=== PATIENT | male | born 1980 | race Caucasian/White ===

== ENCOUNTER 2017-04-02 08:33 | Emergency (ER) | payer SELFPAY ==
[2017-04-02 08:50] VITALS: BP 128/83; TEMP 97.1; O2SAT 100
[2017-04-02] MEDS ORDERED: CLINDAMYCIN HCL CAP 150 MG CAP ONE (08:54)
[2017-04-02] MEDS ORDERED: ACETAMINOPHEN W/COD #3 TAB 1 EA TAB ONE (08:55)
--- NOTE | 2017-04-02 09:05 | ED.PDOC ---
History of Present Illness - General Chief Complaint: Dental/Mouth Stated Complaint: Swollen L cheek x 12 hr Time Seen by Provider: 04/02/17 09:03 Source: patient, RN notes reviewed, Vital Signs reviewed Exam Limitations: no limitations - History of Present Illness Initial Comments: Patient started with L upper molar pain yesterday that worsened throughout the day. He took 2 Amoxicillin last night. This morning he woke up with a very swollen L cheek. No fever or chills. Timing/Duration: 24 hours Severity: moderate Improving Factors: nothing Worsening Factors: eating Associated Symptoms: denies symptoms Allergies/Adverse Reactions: Allergies NO KNOWN ALLERGY Allergy (Verified 04/02/17 08:51) Home Medications: Ambulatory Orders Acetaminophen W/ Codeine [Tylenol W/ CODEINE #3] 2 ea PO BID #28 04/02/17 Clindamycin HCl 300 mg PO Q6HR #15 cap 04/02/17 Review of Systems - Review of Systems Constitutional: States: no symptoms reported. Denies: chills, diaphoresis, fever, malaise EENTM: States: see HPI, mouth pain, mouth swelling. Denies: throat swelling Respiratory: States: no symptoms reported Cardiology: States: no symptoms reported Skin: States: see HPI Neurological: States: no symptoms reported All other Systems: No Change from Baseline Past Medical History (General) - Patient Medical History Hx Stroke: No Hx Congestive Heart Failure: No Hx Hypertension: No Hx Diabetes: No Hx Cancer: No Hx Hepatitis C: No Surgical History: no surgical history - Vaccination History Hx Tetanus, Diphtheria Vaccination: No Hx Influenza Vaccination: No Hx Pneumococcal Vaccination: No - Social History Hx Tobacco Use: Yes Hx Chewing Tobacco Use: No Hx Alcohol Use: Yes - Occas Hx Substance Use: No Hx Substance Use Treatment: No Hx Depression: No Feels Threatened In Home Enviroment: No Feels Threatened In a Relationship: No Hx Physical Abuse: No Hx Emotional Abuse: No Hx Suspected Abuse: No Family Medical History - Family History Grandparents Family History: Unknown Physical Exam - Physical Exam General Appearance: Alert, Comfortable, No apparent distress, Well Developed, Well Groomed, Well Hydrated, Well Nourished Eye Exam: bilateral normal Ears, Nose, Throat: hearing grossly normal, other - L upper last molar: severe dental caries with surrounding gum tenderness but no fluctuance or abscess Neck: non-tender, full range of motion, supple, lymphadenopathy (L) Respiratory: no respiratory distress Neurologic: alert, normal mood/affect, oriented x 3 Skin Exam: other - L cheek is erythematous and tender, minimal warmth. Progress - EKG/XRAY/CT CT Ordered: No CT Interpretation Call Back: No Departure - Departure Clinical Impression: Dental caries, Gingivitis, Acute periodontitis Time of Disposition: 09:09 Disposition: Discharge to Home or Self Care Condition: Good Departure Forms: ED Discharge - Pt. Copy, Patient Portal Self Enrollment Instructions: Tooth Decay, Tooth Abscess Diet: resume usual diet Activity: increase activity as tolerated Referrals: Franky Melgar MD [Primary Care Provider] - 1-2 Weeks Prescriptions: Clindamycin HCl 300 mg PO Q6HR #15 cap Acetaminophen W/ Codeine [Tylenol W/ CODEINE #3] 2 ea PO BID #28 Home Medications: Ambulatory Orders Acetaminophen W/ Codeine [Tylenol W/ CODEINE #3] 2 ea PO BID #28 04/02/17 Clindamycin HCl 300 mg PO Q6HR #15 cap 04/02/17 Additional Instructions: Swish with warm salt water at least 5X/day
[2017-04-02] MEDS ORDERED: ACETAMINOPHEN W/COD #3 TAB 1 EA TAB PO ONE (09:16)
[2017-04-02] MEDS ORDERED: CLINDAMYCIN HCL CAP 150 MG CAP PO ONE (09:16)
== END 2017-04-02 09:20 | disposition home or self-care (01) ==
LOC: ER 08:33
DX: K02.9 Dental caries, unspecified (principal); K05.10 Chronic gingivitis, plaque induced; K05.20 Aggressive periodontitis, unspecified; Z87.891 Personal history of nicotine dependence

== ENCOUNTER 2018-09-01 09:30 | Emergency (ER) | payer SELFPAY ==
--- NOTE | 2018-09-01 09:46 | ED.PDOC ---
History of Present Illness - General Chief Complaint: GI Problem Stated Complaint: Bloody stool, abd pain, fever Time Seen by Provider: 09/01/18 09:46 Source: patient Exam Limitations: no limitations - History of Present Illness Initial Comments: Simeon Bragg 38 y/o male came to ER with watery diarrhea for the last 2 days and blood tinged stool getting chills and with low grade fever today.No foreign travel,no recent antibiotic use;no ill contact.Stated had history of blood tinged stool 2 years ago for 3 weeks but went away w/o md attention.Denies chronic medical problem,no weight loss or afternoon fever.Also had crampy abdominal pain during diarrheic episodes. Timing/Duration: intermittent, other - 2 days Severity: moderate Improving Factors: nothing Worsening Factors: eating Associated Symptoms: loss of appetite Allergies/Adverse Reactions: Allergies NO KNOWN ALLERGY Allergy (Verified 04/02/17 08:51) Home Medications: Ambulatory Orders Acetaminophen W/ Codeine [Tylenol W/ CODEINE #3] 2 ea PO BID #28 04/02/17 Clindamycin HCl 300 mg PO Q6HR #15 cap 04/02/17 Sulfa/Trimeth 800/160 (Ds) Tab [Bactrim DS] 1 tablet PO BID 10 Days #20 tab 04/14 Past Medical History (General) - Patient Medical History Hx Stroke: No Hx Congestive Heart Failure: No Hx Hypertension: No Hx Diabetes: No Hx Cancer: No Hx Hepatitis C: No Surgical History: no surgical history - Vaccination History Hx Tetanus, Diphtheria Vaccination: No Hx Influenza Vaccination: No Hx Pneumococcal Vaccination: No - Social History Hx Tobacco Use: Yes Hx Chewing Tobacco Use: No Hx Alcohol Use: Yes - Occas Hx Substance Use: No Hx Substance Use Treatment: No Hx Depression: No Hx Physical Abuse: No Hx Emotional Abuse: No Hx Suspected Abuse: No - Activities of Daily Living Patient Lives Alone: No Family Medical History - Family History Grandparents Family History: Unknown Hx Family Hypertension: Yes - multiple family members Hx Family Cancer: Yes - throat-mom Physical Exam - Physical Exam General Appearance: Alert, Comfortable, No apparent distress Eye Exam: bilateral normal Ears, Nose, Throat: hearing grossly normal, normal ENT inspection, normal pharynx Neck: non-tender, full range of motion, supple, normal inspection Respiratory: chest non-tender, lungs clear, normal breath sounds, no respiratory distress Cardiovascular/Chest: normal peripheral pulses, regular rate, rhythm, no gallop , no murmur Peripheral Pulses: radial,right: 2+, radial,left: 2+ Gastrointestinal/Abdominal: normal bowel sounds, non tender, soft, no organomegaly, no pulsatile mass Rectal Exam: normal exam, normal rectal tone, heme positive stool Back Exam: no CVA tenderness, no vertebral tenderness Extremity: normal range of motion, non-tender, no pedal edema, no calf tenderness Neurologic: no motor/sensory deficits, alert, oriented x 3 Skin Exam: normal color, warm/dry Lymphatic: no adenopathy Progress - Progress Progress: 09/01/18 10:06 Vital Signs - 8 hr 09/01/18 09:42 Temperature 100.8 F H Pulse Rate [ 89 left brachial] Respiratory 20 Rate Blood Pressure 117/78 [left brachial] O2 Sat by Pulse 99 Oximetry - Results/Orders Results/Orders: 09/01/18 10:10 URINE CULTURE W/COLONY COUNT Stat Laboratory Results - last 24 hr 09/01/18 09/01/18 09/01/18 10:10 10:10 10:15 WBC 5.2 RBC 5.01 Hgb 15.3 Hct 44.6 MCV 89.0 MCH 30.5 MCHC 34.3 RDW 12.2 Plt Count 227 MPV 7.5 Absolute Neuts (auto) 3.80 Absolute Lymphs (auto) 1.00 Absolute Monos (auto) 0.40 Absolute Eos (auto) 0.00 Absolute Basos (auto) 0.00 Neutrophils % 72.8 Lymphocytes % 19.6 L Monocytes % 7.0 Eosinophils % 0.0 L Basophils % 0.6 Sodium Potassium Chloride Carbon Dioxide Anion Gap BUN Creatinine BUN/Creatinine Ratio Random Glucose Serum Osmolality Lactic Acid Calcium Total Bilirubin AST ALT Alkaline Phosphatase Serum Total Protein Albumin Globulin Albumin/Globulin Ratio Urine Color Yellow Urine Appearance Cloudy Urine pH 6.0 Ur Specific [place] >= 1.030 Urine Protein 30 Urine Glucose (UA) Negative Urine Ketones Negative Urine Blood Negative Urine Nitrite Negative Urine Bilirubin Negative Urine Urobilinogen 0.2 Ur Leukocyte Esterase Trace H Urine RBC 1-3 Urine WBC 10-20 H Ur Epithelial Cells 1-3 Urine Bacteria 1+ Urine Mucus Small Urine Sperm 0-1 Stool Occult Blood Positive 09/01/18 09/01/18 10:15 10:15 WBC RBC Hgb Hct MCV MCH MCHC RDW Plt Count MPV Absolute Neuts (auto) Absolute Lymphs (auto) Absolute Monos (auto) Absolute Eos (auto) Absolute Basos (auto) Neutrophils % Lymphocytes % Monocytes % Eosinophils % Basophils % Sodium 133 L Potassium 3.1 L Chloride 101 Carbon Dioxide 24 Anion Gap 11.1 L BUN 8 Creatinine 0.90 BUN/Creatinine Ratio 8.9 L Random Glucose 131 H Serum Osmolality 266.5 L Lactic Acid 1.5 Calcium 8.4 Total Bilirubin 0.5 AST 23 ALT 19 Alkaline Phosphatase 71 Serum Total Protein 6.8 Albumin 3.9 Globulin 2.9 Albumin/Globulin Ratio 1.3 Urine Color Urine Appearance Urine pH Ur Specific [place] Urine Protein Urine Glucose (UA) Urine Ketones Urine Blood Urine Nitrite Urine Bilirubin Urine Urobilinogen Ur Leukocyte Esterase Urine RBC Urine WBC Ur Epithelial Cells Urine Bacteria Urine Mucus Urine Sperm Stool Occult Blood - EKG/XRAY/CT XRAY: chest - no acute abnormality Departure - Departure Clinical Impression: Positive fecal occult blood test, Abdominal cramps Diarrhea Qualifiers: Diarrhea type: unspecified type Qualified Code(s): R19.7 - Diarrhea, unspecified Urinary tract infection Qualifiers: Urinary tract infection type: site unspecified Hematuria presence: without hematuria Qualified Code(s): N39.0 - Urinary tract infection, site not specified Time of Disposition: 11:43 Disposition: Discharge to Home or Self Care Condition: Fair Departure Forms: ED Discharge - Pt. Copy, Patient Portal Self Enrollment Instructions: [place] Diet Diet: other - AVOID GREASY SPICY FOODS UNTIL BETTER;BLAND DIET-banana,steamed rice,crackers,jello,toast bread for the next 24 hours and to advance as tolerated Referrals: Franky Melgar MD [Primary Care Provider] - 1-2 Weeks Prescriptions: Sulfa/Trimeth 800/160 (Ds) Tab [Bactrim DS] 1 tablet PO BID 10 Days #20 tab Home Medications: Ambulatory Orders Acetaminophen W/ Codeine [Tylenol W/ CODEINE #3] 2 ea PO BID #28 04/02/17 Clindamycin HCl 300 mg PO Q6HR #15 cap 04/02/17 Sulfa/Trimeth 800/160 (Ds) Tab [Bactrim DS] 1 tablet PO BID 10 Days #20 tab 04/14 Additional Instructions: NEED TO SIGN UP WITH PRIMARY MD [id number] FOR REFERRAL TO [facility];Return to ER as NEEDED
[2018-09-01 09:47] VITALS: TEMP 100.8
[2018-09-01] MEDS ORDERED: LACTATED RINGERS 1,000 ML IVS ONE (09:47)
--- NOTE | 2018-09-01 10:05 | RAD ---
EXAM DESCRIPTION: Chest,1 View CLINICAL HISTORY: fever COMPARISON: None available FINDINGS: Single upright portable frontal view the chest. Cardiomediastinal silhouette and pulmonary vascularity are within normal limits. Lungs are clear without focal consolidations. Bilateral costophrenic angles are sharp. No pneumothorax. Visualized osseous structures show no destructive lesions. IMPRESSION: No radiographic evidence for acute cardiopulmonary process. Electronically signed by: Jean Marie Lowe MD 09/01/2018 10:03 AM CDT
[2018-09-01] MEDS ORDERED: cefTRIAXone SODIUM 1 GM in SODIUM CHL 0.9% 50ML MIN-BAG+ 50 ML IVPB ONE (11:44)
[2018-09-01] MEDS ORDERED: cefTRIAXone SODIUM 1 GM VIAL ONE (11:51)
[2018-09-01] MEDS ORDERED: SODIUM CHL 0.9% 50ML MIN-BAG+ 50 ML IVPB ONE (11:52)
[2018-09-01 12:30] VITALS: BP 120/75; O2SAT 98
== END 2018-09-01 12:30 | disposition home or self-care (01) ==
LOC: ER 09:30
DX: K92.1 Melena (principal); N39.0 Urinary tract infection, site not specified; R19.7 Diarrhea, unspecified; Z87.891 Personal history of nicotine dependence
CPT/HCPCS: 36415; 71045; 80053; 81001; 82270; 83605; 85025; 87086; 87324; 87449; J0696; J7050; J7120

== ENCOUNTER 2020-07-05 09:13 | Emergency (ER) | payer SELFPAY ==
[2020-07-05 09:29] VITALS: BP 140/88; TEMP 97.7; O2SAT 99
[2020-07-05] MEDS ORDERED: SULFA/TRIMETH 800/160 (DS) TAB 1 EA TAB PO ONE (09:30)
--- NOTE | 2020-07-05 09:33 | ED.PDOC ---
History of Present Illness - General Chief Complaint: Skin/Abrasion/Tear Time Seen by Provider: 07/05/20 09:30 Source: patient Exam Limitations: no limitations - History of Present Illness Initial Comments: The patient is a 40-year-old male presented emergency room secondary to abscess formation under his chin. It has been growing for the past 5 to 7 days. He actually did get it to drain last night. There is significant swelling in the area. Difficult to tell if there is actually any pus remaining at this point or this is simply inflammation from the infection. No evidence of any impingement into the oral cavity or airway. The area is just under the point of the chin. After risk and benefits were explained the patient did agree for a trial incision. Wound is cleaned with alcohol and a #11 blade is used to make a three-quarter centimeter incision over the peak. Less than 1 cc of pus was obtained. This was cultured. Pressure was used for hemostasis. Estimated blood loss is less than 1 cc. Timing/Duration: 1 week Severity: mild Improving Factors: nothing Worsening Factors: nothing Associated Symptoms: denies symptoms Allergies/Adverse Reactions: Allergies NO KNOWN ALLERGY Allergy (Verified 07/05/20 09:23) Home Medications: Ambulatory Orders Sulfa/Trimeth 800/160 (Ds) Tab [Bactrim DS Tab] 1 ea PO BID #14 tab 07/05/20 Review of Systems - Review of Systems Constitutional: States: no symptoms reported EENTM: States: no symptoms reported Respiratory: States: no symptoms reported Cardiology: States: no symptoms reported Gastrointestinal/Abdominal: States: no symptoms reported Genitourinary: States: no symptoms reported Musculoskeletal: States: no symptoms reported Skin: States: see HPI Neurological: States: no symptoms reported Endocrine: States: no symptoms reported Hematologic/Lymphatic: States: no symptoms reported All other Systems: No Change from Baseline Past Medical History (General) - Patient Medical History Hx Seizures: No Hx Stroke: No Hx Dementia: No Hx Asthma: No Hx of COPD: No Hx Cardiac Disorders: No Hx Congestive Heart Failure: No Hx Pacemaker: No Hx Hypertension: No Hx Thyroid Disease: No Hx Diabetes: No Hx Gastroesophageal Reflux: No Hx Renal Disease: No Hx Cancer: No Hx of HIV: No Hx Hepatitis C: No Hx MRSA: No Surgical History: no surgical history - Vaccination History Hx Tetanus, Diphtheria Vaccination: No Hx Influenza Vaccination: No Hx Pneumococcal Vaccination: No - Social History Hx Tobacco Use: Yes Hx Chewing Tobacco Use: Yes Hx Alcohol Use: Yes - Occas Hx Substance Use: No Hx Substance Use Treatment: No Hx Depression: No Hx Physical Abuse: No Hx Emotional Abuse: No Hx Suspected Abuse: No Family Medical History - Family History Grandparents Family History: Unknown Hx Family Hypertension: Yes - multiple family members Hx Family Cancer: Yes - throat-mom Physical Exam - Physical Exam General Appearance: Alert, Comfortable, No apparent distress Eye Exam: bilateral normal Ears, Nose, Throat: hearing grossly normal, normal pharynx Neck: other - Swelling just under the point of the chin. There is an abrasion over the area of swelling. No current drainage. 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 The patient had already done a pretty good job of draining the abscess prior to arrival. Incision here produced minimal results. A culture was done. The patient was dosed with Bactrim and will be written for 1 week of Bactrim. He needs to take this with food to prevent stomach upset. He also needs to avoid shaving for the next week. ER warnings are given for any significant worsening. [email or web address] [id number] Departure - Departure Clinical Impression: Abscess of skin Qualifiers: Site of cutaneous abscess: neck Qualified Code(s): L02.11 - Cutaneous abscess of neck Disposition: Discharge to Home or Self Care Condition: Fair Departure Forms: ED Discharge - Pt. Copy, Patient Portal Self Enrollment Instructions: DI for Abrasion, Boil (DC) Diet: regular diet Activity: increase activity as tolerated Prescriptions: Sulfa/Trimeth 800/160 (Ds) Tab [Bactrim DS Tab] 1 ea PO BID #14 tab Home Medications: Ambulatory Orders Sulfa/Trimeth 800/160 (Ds) Tab [Bactrim DS Tab] 1 ea PO BID #14 tab 07/05/20 Additional Instructions: The patient is a 40-year-old male presented emergency room secondary to abscess formation under the point of the chin. The patient had already done a pretty good job of draining the abscess prior to arrival. Incision here produced minimal results. A culture was done. The patient was dosed with Bactrim and will be written for 1 week of Bactrim. He needs to take this with food to prevent stomach upset. He also needs to avoid shaving for the next week. ER warnings are given for any significant worsening.
== END 2020-07-05 09:40 | disposition home or self-care (01) ==
LOC: ER 09:13
DX: L02.11 Cutaneous abscess of neck (principal); Z87.891 Personal history of nicotine dependence

== ENCOUNTER 2020-11-09 15:33 | Emergency (ER) | payer SELFPAY ==
[2020-11-09 15:54] VITALS: BP 122/75; TEMP 98.3; O2SAT 98
[2020-11-09] MEDS ORDERED: SULFA/TRIMETH 800/160 (DS) TAB 1 EA TAB PO ONE (15:56)
--- NOTE | 2020-11-09 15:59 | ED.PDOC ---
History of Present Illness - General Chief Complaint: Skin/Abrasion/Tear Stated Complaint: Reddened/inflamed area, poss bite in groin area Time Seen by Provider: 11/09/20 15:39 Source: patient Exam Limitations: no limitations - History of Present Illness Timing/Duration: constant, other - 2 days Severity: mild Improving Factors: nothing Worsening Factors: nothing Associated Symptoms: other - abcess Allergies/Adverse Reactions: Allergies NO KNOWN ALLERGY Allergy (Verified 07/05/20 09:23) Home Medications: Ambulatory Orders Sulfa/Trimeth 800/160 (Ds) Tab [Bactrim DS Tab] 1 ea PO BID 11/09/20 Sulfa/Trimeth 800/160 (Ds) Tab [Bactrim DS] 1 tablet PO BID 11/09/20 Review of Systems - Review of Systems Constitutional: Denies: chills, fever EENTM: Denies: tearing, nose pain, nose congestion Respiratory: Denies: cough, short of breath Cardiology: Denies: chest pain, edema Gastrointestinal/Abdominal: Denies: abdominal pain, constipation Genitourinary: Denies: discharge Musculoskeletal: Denies: back pain, gout Skin: States: other - asbcess / cellultis inleft inguinal region Neurological: Denies: anxiety, depressed, emotional problems Endocrine: Denies: intolerance to cold, intolerance to heat Hematologic/Lymphatic: Denies: anemia, easy bruising Past Medical History (General) - Patient Medical History Hx Seizures: No Hx Stroke: No Hx Dementia: No Hx Asthma: No Hx of COPD: No Hx Cardiac Disorders: No Hx Congestive Heart Failure: No Hx Pacemaker: No Hx Hypertension: No Hx Thyroid Disease: No Hx Diabetes: No Hx Gastroesophageal Reflux: No Hx Renal Disease: No Hx Cancer: No Hx of HIV: No Hx Hepatitis C: No Hx MRSA: No Surgical History: no surgical history - Vaccination History Hx Tetanus, Diphtheria Vaccination: No Hx Influenza Vaccination: No Hx Pneumococcal Vaccination: No - Social History Hx Tobacco Use: Yes Hx Chewing Tobacco Use: Yes Hx Alcohol Use: Yes Hx Substance Use: No Hx Substance Use Treatment: No Hx Depression: No Hx Physical Abuse: No Hx Emotional Abuse: No Hx Suspected Abuse: No Family Medical History - Family History Grandparents Family History: Unknown Hx Family Hypertension: Yes - multiple family members Hx Family Cancer: Yes - throat-mom Physical Exam - Physical Exam General Appearance: Alert, Anxious, Comfortable Eyes, Ears, Nose, Throat Exam: TMs normal, pharynx normal Neck: non-tender, full range of motion, supple Cardiovascular/Chest: normal peripheral pulses, regular rate, rhythm, no edema, no gallop, no JVD, no murmur, JVD Respiratory: chest non-tender, lungs clear, normal breath sounds, no respiratory distress, no accessory muscle use Gastrointestinal/Abdominal: normal bowel sounds, non tender, soft, no organomegaly, no pulsatile mass Back Exam: normal inspection, no CVA tenderness Extremity: normal range of motion, non-tender, normal inspection, no pedal edema 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 not drainable at this time Progress - Progress Progress: 11/09/20 15:59 The patient is a 40-year-old male that presents to the emergency department with complaints of an inguinal abscess. Onset was 2 days ago. Abscess is not drainable at time of my evaluation today. No fevers no chills vitals are stable started patient on Bactrim patient advised follow-up primary care physician in 1 to 2 days. Patient advised to return to the ED as needed if the abscess that is draining for an I&D or follow-up with his primary care physician. He verbalized understanding Departure - Departure Clinical Impression: Abscess of groin, left Clinical Impression: (Ruled Out): Abscess and cellulitis of gluteal region Disposition: Discharge to Home or Self Care Departure Forms: ED Discharge - Pt. Copy, Patient Portal Self Enrollment Diet: full liquid diet Activity: ambulate only with walker Referrals: Wallace Vidales DO [Non-Staff] - 1-2 Weeks Home Medications: Ambulatory Orders Sulfa/Trimeth 800/160 (Ds) Tab [Bactrim DS Tab] 1 ea PO BID 11/09/20 Sulfa/Trimeth 800/160 (Ds) Tab [Bactrim DS] 1 tablet PO BID 11/09/20
== END 2020-11-09 16:11 | disposition home or self-care (01) ==
LOC: ER 15:33
DX: L02.214 Cutaneous abscess of groin (principal); Z87.891 Personal history of nicotine dependence

== ENCOUNTER 2020-11-10 19:44 | Emergency (ER) | payer SELFPAY ==
[2020-11-10] MEDS ORDERED: LIDOCAINE 1% 10 ML VIAL INJ ONE (19:54)
[2020-11-10] MEDS ORDERED: VANCOMYCIN HCL INJ 1,000 MG in SODIUM CHLORIDE 0.9% 250ML 250 ML IVPB ONE (19:58)
--- NOTE | 2020-11-10 20:00 | ED.PDOC ---
History of Present Illness - General Chief Complaint: Skin/Abrasion/Tear Time Seen by Provider: 11/10/20 19:45 Source: RN notes reviewed, Vital Signs reviewed, EMS notes reviewed Additional Information: Patient presented to the ER because of a abscess in the left groin area, this patient was seen here yesterday and was discharged home with Bactrim, he stated that symptoms began about 3 days ago and he states that is getting worse, patient does not appear toxic does not be in any distress no fever no chills no coughing, no hx of Diabetes Patient patient denies fever chills coughing denies cigarettes alcohol or drugs - History of Present Illness Timing/Duration: other - 3 days Severity: severe Improving Factors: nothing Worsening Factors: nothing Associated Symptoms: denies symptoms Allergies/Adverse Reactions: Allergies NO KNOWN ALLERGY Allergy (Verified 07/05/20 09:23) Home Medications: Ambulatory Orders Sulfa/Trimeth 800/160 (Ds) Tab [Bactrim DS Tab] 1 ea PO BID 11/09/20 Sulfa/Trimeth 800/160 (Ds) Tab [Bactrim DS] 1 tablet PO BID 11/09/20 Acetaminophen W/ Codeine [Tylenol W/ CODEINE #3] 1 ea PO Q6HRS #20 ea 11/10/20 Cephalexin Monohydrate [Keflex] 500 mg PO BID #14 cap 11/10/20 Review of Systems - Review of Systems Constitutional: States: no symptoms reported EENTM: States: no symptoms reported Respiratory: States: no symptoms reported Cardiology: States: no symptoms reported Gastrointestinal/Abdominal: States: no symptoms reported Genitourinary: States: no symptoms reported Musculoskeletal: States: no symptoms reported Skin: States: no symptoms reported Neurological: States: no symptoms reported Endocrine: States: no symptoms reported Hematologic/Lymphatic: States: no symptoms reported Past Medical History (General) - Patient Medical History Hx Seizures: No Hx Stroke: No Hx Dementia: No Hx Asthma: No Hx of COPD: No Hx Cardiac Disorders: No Hx Congestive Heart Failure: No Hx Pacemaker: No Hx Hypertension: No Hx Thyroid Disease: No Hx Diabetes: No Hx Gastroesophageal Reflux: No Hx Renal Disease: No Hx Cancer: No Hx of HIV: No Hx Hepatitis C: No Hx MRSA: No - Vaccination History Hx Tetanus, Diphtheria Vaccination: No Hx Influenza Vaccination: No Hx Pneumococcal Vaccination: No - Social History Hx Tobacco Use: Yes Hx Chewing Tobacco Use: Yes Hx Alcohol Use: Yes Hx Substance Use: No Hx Substance Use Treatment: No Hx Depression: No Hx Physical Abuse: No Hx Emotional Abuse: No Hx Suspected Abuse: No Family Medical History - Family History Grandparents Family History: Unknown Hx Family Hypertension: Yes - multiple family members Hx Family Cancer: Yes - throat-mom Physical Exam - Physical Exam General Appearance: Well Developed, Well Groomed, Well Hydrated, Well Nourished Ears, Nose, Throat: hearing grossly normal, normal ENT inspection, normal pharynx Neck: non-tender, full range of motion, supple, normal inspection Respiratory: chest non-tender, lungs clear, normal breath sounds, no respiratory distress, no accessory muscle use Cardiovascular/Chest: normal peripheral pulses, regular rate, rhythm, no edema, no gallop, no JVD, no murmur Peripheral Pulses: radial,right: 2+, radial,left: 2+ Gastrointestinal/Abdominal: normal bowel sounds, non tender, soft, no organomegaly, no pulsatile mass Back Exam: normal inspection, no CVA tenderness, no vertebral tenderness Extremity: normal range of motion, non-tender, normal inspection, no pedal edema, no calf tenderness Neurologic: steward/stewardess night II-XII nml as tested, no motor/sensory deficits, alert, normal mood/affect, oriented x 3 Skin Exam: normal color Comments: Cellulitis right the left groin area, with some fluctuance, it does not appear to be extending into the testicle of the penis, Progress - Progress Progress: I personally spoke with the radiologist.or further before since there was some evidence of some subcutaneous gas that could be due to necrotizing gangrene, or gaseous gangrene. But this gas was troubled by the fact that I incise the area of inflammation, with some minimal pus, CT did not show any evidence of abscess there was no evidence of extending into the pelvics or testicles or deep groin area patient was alredy taking Bactrim, I did give him a dose of IV vancomycin, and will add Keflex to his antibiotics regimen and will give him also Tylenol 3 for pain Return to the ER immediately if there is any fever chills worsening condition pain if the area of redness is extending into the penis testicles deep into the groin area medial aspect of the thigh muscle or any other concern 12/14/20 21:11 Procedures - Incision and Drainage #1 Procedure and Prep: sterile dressings applied, pus drained Blade Size: 11 Procedure Comments: left groin Was in sinus with some minimal pus and blood but no complication Departure - Departure Clinical Impression: Abdominal wall cellulitis Disposition: Discharge to Home or Self Care Departure Forms: ED Discharge - Pt. Copy, Patient Portal Self Enrollment Instructions: DI for Abrasion, Cellulitis (Skin Infection), Adult (DC) Diet: resume usual diet Prescriptions: Acetaminophen W/ Codeine [Tylenol W/ CODEINE #3] 1 ea PO Q6HRS #20 ea Cephalexin Monohydrate [Keflex] 500 mg PO BID #14 cap Home Medications: Ambulatory Orders Sulfa/Trimeth 800/160 (Ds) Tab [Bactrim DS Tab] 1 ea PO BID 11/09/20 Sulfa/Trimeth 800/160 (Ds) Tab [Bactrim DS] 1 tablet PO BID 11/09/20 Acetaminophen W/ Codeine [Tylenol W/ CODEINE #3] 1 ea PO Q6HRS #20 ea 11/10/20 Cephalexin Monohydrate [Keflex] 500 mg PO BID #14 cap 11/10/20
[2020-11-10] MEDS ORDERED: HYDROmorphone HCL INJ 2 MG/ML VIAL ONE (20:04)
[2020-11-10] MEDS ORDERED: ONDANSETRON INJ 4 MG/2 ML VIAL ONE (20:05)
[2020-11-10] MEDS ORDERED: HYDROmorphone HCL INJ 2 MG/ML VIAL IV ONE (20:30)
--- NOTE | 2020-11-10 20:57 | CT ---
CT PELVIS WITH IV CONTRAST HISTORY: Inguinal hernia. Gangrene. COMPARISON: None. TECHNIQUE: CT scan of the pelvis was performed with IV contrast. This exam was performed according to our departmental dose-optimization program, which includes automated exposure control, adjustment of the mA and/or kV according to patient size and/or use of iterative reconstruction technique. FINDINGS: There are focal inflammatory changes with subcutaneous air in the region of the left groin. There are also prominent multiple left inguinal lymph nodes, which are likely reactive. No foreign body or abscess is identified. The intrapelvic structures demonstrate diffuse circumferential wall thickening of the urinary bladder. No inguinal hernia is identified. The bony structures of the pelvis are intact. IMPRESSION: 1. Focal inflammatory changes in the left groin with subcutaneous air, which may represent gangrenous infection. 2. No evidence of abscess or inguinal hernia. 3. Focal wall thickening of the urinary bladder which may represent cystitis. Electronically signed by: Arnav Mercado MD 11/10/2020 8:55 PM [facility]
[2020-11-10] MEDS ORDERED: ONDANSETRON INJ 4 MG/2 ML VIAL IV ONE (21:14)
[2020-11-10 22:01] VITALS: O2SAT 97
[2020-11-10 23:01] VITALS: BP 116/58; TEMP 97.8
== END 2020-11-10 23:02 | disposition home or self-care (01) ==
LOC: ER 19:44
DX: L03.311 Cellulitis of abdominal wall (principal); Z87.891 Personal history of nicotine dependence
CPT/HCPCS: 36415; 72193; 80053; 85025; J1170; J2405; J3370; J7050